=== PATIENT | female | born 1955 | race Caucasian/White ===

== ENCOUNTER 2016-04-03 13:04 | Emergency (ER) | payer OTHER ==
[2016-04-03 13:29] VITALS: BP_SYST 114; PULSE 76; RESP 18; TEMP 98.1; O2SAT 94
[2016-04-03] MEDS ORDERED: ORPHENADRINE INJ 60 MG/2 ML AMP IM ONE (13:30)
[2016-04-03] MEDS ORDERED: LEVO100T5 PO (13:30)
[2016-04-03] MEDS ORDERED: LEXA10TA PO (13:30)
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
[2016-04-03] MEDS ORDERED: IBUPROFEN 800 MG TAB PO ONE (14:15)
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
[2016-04-03] MEDS ORDERED: PERC5TAB12 PO (15:16)
[2016-04-03] MEDS ORDERED: CYCL1TAB29 PO (15:32)
[2016-04-03] MEDS ORDERED: IBUP800T23 PO (15:32)
== END 2016-04-03 16:07 | disposition home or self-care (01) ==
LOC: NEPB 13:04
DX: S22.089A Unspecified fracture of T11-T12 vertebra, initial encounter for closed fracture (principal); M41.9 Scoliosis, unspecified; M62.830 Muscle spasm of back; V53.6XXA Passenger in pick-up truck or van injured in collision with car, pick-up truck or van in traffic accident, initial encounter; Y93.9 Activity, unspecified; Y92.9 Unspecified place or not applicable; Y99.9 Unspecified external cause status
CPT/HCPCS: 70450; 72125; 72128; 96372; 99284; J2360